=== PATIENT | female | born 1970 | race Caucasian/White ===

== ENCOUNTER → 2019-08-14 14:01 | Outpatient (BNVA) | payer BC, SELFPAY | PROVIDERS: Family Provider Nurse Practitioner; PCP Nurse Practitioner; Referring Provider Physician Assistant Medical; Visit Provider Podiatrist Foot & Ankle Surgery | DX: M79.671 Pain in right foot (principal); M79.672 Pain in left foot | CPT/HCPCS: 73630 ==

== ENCOUNTER 2019-10-28 11:04 | Emergency (ER) | payer BC, SELFPAY ==
[2019-10-28 11:11] VITALS: BMI 35.6
[2019-10-28 11:14] VITALS: BP 137/78; PULSE 68; RESP 18; TEMP 36.7; O2SAT 96
--- NOTE | 2019-10-28 11:35 | USR_ITS ---
PROCEDURE INFORMATION: Exam: US Abdomen, Limited; Right Upper Quadrant Exam date and time: 10/28/2019 12:07 PM Age: 49 years old Clinical indication: Abdominal pain; Epigastric TECHNIQUE: Imaging protocol: US abdomen. Real time ultrasound with image documentation. Limited exam focused on the right upper quadrant. COMPARISON: US gall bladder [id number] 09/22/2018 12:35 PM FINDINGS: Liver: Unremarkable. Gallbladder: No gallstones. No gallbladder wall thickening or pericholecystic fluid. Negative sonographic Shetty's sign, as per the performing broadband installer. Common bile duct: No stones. No ductal dilatation. Pancreas: Unremarkable as visualized. Right kidney: No mass. No definite stones. No hydronephrosis. US/US gall bladder [id number] IMPRESSION: No acute sonographic findings.
[2019-10-28] MEDS: sodium chloride 0.9% 1,000 ML 100 ML IV (11:37)
[2019-10-28] MEDS: morphine 4 mg/mL SDV 1 mL IVP ×2 (11:40→13:00)
[2019-10-28] MEDS: ondansetron 2 mg/ML SDV 2 mL 4 MG IVP (11:40)
[2019-10-28 11:50] LABS: Basophils # 0.1 10^3/uL (0.0-0.1); Basophils % 2.1 %; Eosinophils # 0.1 10^3/uL (0.0-0.8); Eosinophils % 1.9 %; Hematocrit 43.5 % (37.0-47.0); Hemoglobin 13.9 g/dL (11.5-15.3); Lymphocytes # 1.5 10^3/uL (0.8-4.8); Lymphocytes % 30.9 %; Mean Corpuscular Hemoglobin 30.5 pg (28.0-34.0); Mean Corpuscular Volume 95.6 fL (81-99); Mean Platelet Volume 9.5 fL (7.4-10.4); Monocytes # 0.3 10^3/uL (0.2-0.9); Monocytes % 7.1 %; Neutrophils # 2.77 10^3/uL (1.8-7.7); Neutrophils % 57.8 %; Nucleated Red Blood Cells % 0 %; Platelet Count 314 10^3/cmm (130-400); Red Blood Count 4.55 10^6/uL (4.1-5.3); Red Cell Distribution Width 12.6 % (12.1-15.1); White Blood Count 4.8 10^3/uL (4.0-10.0)
--- NOTE | 2019-10-28 11:50 | W.ED.ABDPA2 ---
HPI - Abdominal Pain General: Chief Complaint: Abdominal Pain Stated Complaint: ABD PAIN Time Seen by Provider: 10/28/19 11:20 Source: patient Mode of arrival: ambulatory Limitations: no limitations History of Present Illness: HPI narrative: Aggie is a nice 49-year-old female who comes in complaining of diffuse abdominal pain. She points to the lower quadrants, the epigastric area and also indicates she hurts in her upper quadrants. The pain is constant but has been waxing and waning in severity throughout the day. She is had associated nauseousness and diarrhea but denies any vomiting. She denies any blood in her stools or blood in her vomit. She denies any chest pain, shortness of breath. She states if she does get up quickly she can get lightheaded but this passes quickly. Patient states she has a history of colitis and these symptoms are similar and that is why she came in for evaluation. She denies any blood in her stools or melena. She denies any recent antibiotics. She is unaware of any exacerbating or alleviating factors. She is not been exposed anyone else that sick. Associated Symptoms: Reports diarrhea and nausea; Denies chills, coffee ground emesis, constipation, GI cramping, dysuria, fever(s), heartburn, hematochezia, hematuria, hematemesis, melena, syncope and vomiting Review of Systems Const: Denies: fever(s), chills, body aches, fatigue, malaise or diaphoresis Eyes: Denies: change in vision, blurry vision, blind spots, photophobia, eye discharge or eye redness ENMT: Denies: throat pain, odynophagia, hoarseness, swelling of lips/tongue, oral sores, ear or mastoid pain, ear discharge, change in hearing or nasal discharge Card: Denies: chest pain, palpitations, irregular heart rhythm, edema, lightheadedness, syncope, pre-syncope, dyspnea on exertion or orthopnea Resp: Denies: dyspnea, productive cough, non-productive cough, wheezing, hemoptysis or chest congestion GI: Reports: abdominal pain, nausea and diarrhea; Denies: vomiting, hematemesis, coffee ground emesis, heartburn, constipation, GI cramping, hematochezia or melena : Denies: flank pain, dysuria, urinary frequency, urinary urgency or hematuria Musc: Denies: neck pain, back pain, extremity pain, extremity swelling, joint pain, joint swelling, joint redness, joint warmth or joint stiffness Skin/Breast: Denies: rash, pruritus, erythema, skin tenderness or jaundice Neuro: Denies: headache(s), numbness in extremities, weakness in extremities, sensory changes, lack of coordination, difficulty walking, dizziness, vertigo, confusion, Slurred speech present or seizure-like activity Stevo/Lymph: Denies: easy bruising, easy bleeding, petechiae, purpura or enlarged lymph nodes All/Imm: Denies: urticaria, throat swelling, tongue swelling, facial swelling or acute wheezing PFSH ED PFSH: Medical History Fibromyalgia GERD (gastroesophageal reflux disease) Surgical History History of hysterectomy Social History Smoking and tobacco status: never smoked Alcohol intake: current Alcohol intake frequency: holidays/special occasions only Current occupational status: employed 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 Const: COMMON NORMALS: no acute distress, patient oriented x3, no limitations, healthy appearing and well nourished GENERAL APPEARANCE: cooperative, well kempt and well developed HENMT: COMMON NORMALS: normocephalic, atraumatic, external ears normal, EAC's normal and Normal external nose present HEAD & SCALP: normal to inspection, normocephalic and atraumatic FACE & SINUS: normal facial exam and face symmetric NOSE: Normal external nose present and Normal nares present EXTERNAL EAR: Yes external ears normal EXTERNAL AUDITORY CANAL: EAC's normal MOUTH: Normal oral and palatal mucosa present, lip normal and tongue normal Eye: COMMON NORMALS: Equal, round and reactive pupils present and conjunctivae normal GENERAL EYE: appearance normal, both eyes and all related structures ALIGNMENT: Yes alignment normal PERIORBITAL: periorbital findings normal EYELID: eyelids normal CONJUNCTIVA: Yes conjunctivae normal SCLERA: sclerae normal PUPIL: Yes Equal, round and reactive pupils present Neck/C-Spine: COMMON NORMALS: full ROM, no lymphadenopathy, supple, no meningeal signs and no JVD GENERAL: Yes normal visual inspection and Yes trachea midline Chest: COMMONS NORMALS: normal inspection of the chest and normal palpation of entire chest wall Resp: COMMON NORMALS: normal respiratory effort, No retractions and No use of accessory muscles EFFORT & INSPECTION: Yes able to speak in complete sentences and Yes symmetric chest movement AUSCULTATION: no crackles, no rales, no rhonchi and no wheezes Cardio: COMMON NORMALS: no JVD, regular rate, regular rhythm, S1 normal heart sound present and S2 normal heart sound present RATE: regular rate RHYTHM: regular rhythm HEART SOUNDS: S1 normal heart sound present, S2 normal heart sound present, no click, no gallops, no murmurs, no rubs and abnormal split S2 GI: COMMON NORMALS: Soft to palpation and No hepatosplenomegaly present PALPATION: Yes Soft to palpation, No Tenderness to palpation present (GI), No Guarding due to palpation present (GI), No Rigid due to palpation, Yes No hepatosplenomegaly present, No Hernia present, No Palpable mass present and No Pulsatile mass present : COMMON NORMALS: Yes no CVA tenderness BLADDER/KIDNEY EXAM: Yes no CVA tenderness EXTERNAL FEMALE EXAM: No Hernia present Back/Pelvis: COMMON NORMALS: no CVA tenderness, thoracic and lumbar spine normal to inspection, no thoracic nor lumbar tenderness and thoraco-lumbar ROM normal Extremity: COMMON NORMALS: normal to inspection, full ROM, capillary refill normal, no joint enlargement, no clubbing, cyanosis or edema and no calf tenderness Neuro: COMMON NORMALS: patient oriented x3, CN's II-XII intact bilaterally, moves all extremities, no focal motor deficits and no sensory deficits noted MENINGEAL SIGNS: Yes no meningeal signs SPEECH: speech normal Psych: COMMON NORMALS: mental status grossly normal, Normal thought process present, cooperative, normal affect, speech normal and activity/motor behavior normal APPEARANCE: Yes well kempt SPEECH: Yes normal speech THOUGHT PROCESS: Normal thought process present Skin: COMMON NORMALS: no rashes or lesions noted, turgor normal, no jaundice, no petechiae and no mottling GENERAL SKIN EXAM: no rashes or lesions noted and turgor normal Course Vital Signs: Vital signs: Vital Signs Temperature 98.0 F 10/28/19 11:14 Pulse Rate 64 10/28/19 15:21 Respiratory Rate 18 10/28/19 15:21 Blood Pressure 126/87 10/28/19 15:21 Pulse Oximetry 96 10/28/19 15:21 MDM - Abdominal Pain MDM Narrative: Medical decision making narrative: Pablo is a nice 49-year-old female who comes in complaining of lower abdominal pain and diarrhea. She has had similar symptoms in the past secondary to colitis. Patient states that she has had diarrhea with this. She denies any blood in her stools or black melanotic stools. She denies been on any recent antibiotics. She had a meal denies chest pain or shortness of breath. Ultrasound and CT scan are unremarkable. The patient declines to stay for any cardiac testing as she denies having any symptoms in her chest. The patient agrees to return should her symptoms change or worsen but at this time she is adamant she would like to be discharged. Differential Diagnosis: Differential diagnosis abdominal pain: Likely abdominal pain, calculus of kidney, constipation, diverticulitis, endometriosis, gastroenteritis, pancreatitis and small bowel obstruction Lab Data: Attestation: I reviewed the patient's lab results. Labs: Lab Results 10/28/19 10/28/19 10/28/19 Range/Units 11:35 11:35 11:35 WBC 4.8 (4.0-10.0) 10^3/ uL RBC 4.55 (4.1-5.3) 10^6/u L Hgb 13.9 (11.5-15.3) g/dL Hct 43.5 (37.0-47.0) % MCV 95.6 (81-99) fL MCH 30.5 (28.0-34.0) pg MCHC 32.0 (30.0-36.0) g/dL RDW 12.6 (12.1-15.1) % Plt Count 314 (130-400) 10^3/c mm MPV 9.5 (7.4-10.4) fL Neut % (Auto) 57.8 % Lymph % (Auto) 30.9 % [place] % (Auto) 7.1 % Eos % (Auto) 1.9 % Baso % (Auto) 2.1 % Neut # (Auto) 2.77 (1.8-7.7) 10^3/u L Lymph # (Auto) 1.5 (0.8-4.8) 10^3/u L [place] # (Auto) 0.3 (0.2-0.9) 10^3/u L Eos # (Auto) 0.1 (0.0-0.8) 10^3/u L Baso # (Auto) 0.1 (0.0-0.1) 10^3/u L Nucleated RBC % (a uto) 0 % Nucleated RBCs # 0.0 /100WBC Sodium 135 L (136-145) mmol/L Potassium 4.0 (3.5-5.1) mmol/L Chloride 100 (98-107) mmol/L Carbon Dioxide 25 (22-29) mmol/L Anion Gap 14.0 (5-19) BUN 10 (6-20) mg/dL Creatinine 0.8 (0.5-0.9) mg/dL GFR Calculation 76.9 L (90-130) mL/min Glucose 99 (65-115) mg/dL Calculated Osmolal ity 276 L (285-295) mOsm/k g Calcium 9.7 (8.5-10.5) mg/dL Magnesium 1.9 (1.7-2.3) mg/dL Total Bilirubin 0.4 (0.15-1.2) mg/dL AST 14 (0-32) U/L ALT 13 (0-33) U/L Alkaline Phosphata se 61 (35-105) IU/L Total Protein 7.1 (6.6-8.7) g/dL Albumin 4.5 (3.5-5.2) g/dL Globulin 2.6 (1.3-4.6) g/dL Lipase 17 (13-60) U/L HCG, Qual Negative (Negative) Urine Color (Yellow) Urine Appearance (CLEAR) Urine pH (5-7) Ur Specific Gravit y (1.005-1.030) Urine Protein (Negative) Urine Glucose (UA) (Normal) Urine Ketones (Negative) Urine Blood (Negative) Urine Nitrate (Negative) Urine Bilirubin (NEGATIVE) Urine Urobilinogen (Negative) mg/dL Ur Leukocyte [place]aine ase (Negative) H. pylori IgG Anti body (Negative) 10/28/19 10/28/19 Range/Units 11:35 12:52 WBC (4.0-10.0) 10^3/ uL RBC (4.1-5.3) 10^6/u L Hgb (11.5-15.3) g/dL Hct (37.0-47.0) % MCV (81-99) fL MCH (28.0-34.0) pg MCHC (30.0-36.0) g/dL RDW (12.1-15.1) % Plt Count (130-400) 10^3/c mm MPV (7.4-10.4) fL Neut % (Auto) % Lymph % (Auto) % [place] % (Auto) % Eos % (Auto) % Baso % (Auto) % Neut # (Auto) (1.8-7.7) 10^3/u L Lymph # (Auto) (0.8-4.8) 10^3/u L [place] # (Auto) (0.2-0.9) 10^3/u L Eos # (Auto) (0.0-0.8) 10^3/u L Baso # (Auto) (0.0-0.1) 10^3/u L Nucleated RBC % (a uto) % Nucleated RBCs # /100WBC Sodium (136-145) mmol/L Potassium (3.5-5.1) mmol/L Chloride (98-107) mmol/L Carbon Dioxide (22-29) mmol/L Anion Gap (5-19) BUN (6-20) mg/dL Creatinine (0.5-0.9) mg/dL GFR Calculation (90-130) mL/min Glucose (65-115) mg/dL Calculated Osmolal ity (285-295) mOsm/k g Calcium (8.5-10.5) mg/dL Magnesium (1.7-2.3) mg/dL Total Bilirubin (0.15-1.2) mg/dL AST (0-32) U/L ALT (0-33) U/L Alkaline Phosphata se (35-105) IU/L Total Protein (6.6-8.7) g/dL Albumin (3.5-5.2) g/dL Globulin (1.3-4.6) g/dL Lipase (13-60) U/L HCG, Qual (Negative) Urine Color Colorless (Yellow) Urine Appearance Clear (CLEAR) Urine pH 7 (5-7) Ur Specific Gravit y 1.005 (1.005-1.030) Urine Protein Neg (Negative) Urine Glucose (UA) Norm (Normal) Urine Ketones Negative (Negative) Urine Blood Neg (Negative) Urine Nitrate Negative (Negative) Urine Bilirubin Neg (NEGATIVE) Urine Urobilinogen Norm (Negative) mg/dL Ur Leukocyte [place] ase Negative (Negative) H. pylori IgG Anti body Negative (Negative) Imaging Data ^: US: Radiologist's impression: [place] [address] Ultrasound Report Signed Patient: Aggie Govea Unit #: [id number] : 1970 Age/Sex: 49 / F ADM Date: 10/28/19 Loc: ER Room/Bed: Attending Dr: Ordering Provider/Ordering MD: Katarina Pierre DO Date of Service: 10/28/19 Procedure(s): US gall bladder [id number] Accession Number(s): [id number] Report Number: [id number] PROCEDURE INFORMATION: Exam: US Abdomen, Limited; Right Upper Quadrant Exam date and time: 10/28/2019 12:07 PM Age: 49 years old Clinical indication: Abdominal pain; Epigastric TECHNIQUE: Imaging protocol: US abdomen. Real time ultrasound with image documentation. Limited exam focused on the right upper quadrant. COMPARISON: US gall bladder [id number] 09/22/2018 12:35 PM FINDINGS: Liver: Unremarkable. Gallbladder: No gallstones. No gallbladder wall thickening or pericholecystic fluid. Negative sonographic Shetty's sign, as per the performing thermostat machine tender. Common bile duct: No stones. No ductal dilatation. Pancreas: Unremarkable as visualized. Right kidney: No mass. No definite stones. No hydronephrosis. US/US gall bladder [id number] IMPRESSION: No acute sonographic findings. Dictated By: Valdez Soriano MD Signed By: Valdez Soriano MD Signed Date/Time: 10/28/19 1224 DD/ 1223 CT Abd/Pel: Radiologist's impression: [place] [address] CT Scan Report Signed Patient: Aggie Govea Unit #: [id number] : 1970 Age/Sex: 49 / F ADM Date: 10/28/19 Loc: ER Room/Bed: Attending Dr: Ordering Provider/Ordering MD: Katarina Pierre DO Date of Service: 10/28/19 Procedure(s): CT abdomen pelvis w con* [id number] Accession Number(s): [id number] Report Number: [id number] PROCEDURE INFORMATION: Exam: CT Abdomen And Pelvis With Contrast Exam date and time: 10/28/2019 1:42 PM Age: 49 years old Clinical indication: Abdominal pain; Generalized TECHNIQUE: Imaging protocol: Computed tomography of the abdomen and pelvis with intravenous contrast. Radiation optimization: All CT scans at this facility use at least one of these dose optimization techniques: automated exposure control; mA and/or kV adjustment per patient size (includes targeted exams where dose is matched to clinical indication); or iterative reconstruction. Contrast material: OMNIPAQUE 300; Contrast volume: 95 ml; Contrast route: INTRAVENOUS (IV); COMPARISON: CT abdomen pelvis w con* [id number] 09/22/2018 2:36 PM RADIATION DOSE METRICS: Total DLP (mGy-cm): 1450.59 FINDINGS: Liver: Normal. No mass. Gallbladder and bile ducts: Normal. No calcified stones. No ductal dilation. Pancreas: Normal. No ductal dilation. Spleen: Normal. No splenomegaly. Adrenals: Normal. No mass. Kidneys and ureters: Normal. No hydronephrosis. Stomach and bowel: Unremarkable. No obstruction. No mucosal thickening. Appendix: No evidence of appendicitis. Intraperitoneal space: Unremarkable. No free air. No significant fluid collection. Vasculature: Unremarkable. No abdominal aortic aneurysm. Lymph nodes: Unremarkable. No enlarged lymph nodes. Bladder: Unremarkable as visualized. Reproductive: The uterus is not visualized, consistent with hysterectomy. Bones/joints: Unremarkable. No acute fracture. Soft tissues: Tiny fat containing umbilical hernia. CT/CT abdomen pelvis w con* [id number] IMPRESSION: No acute findings.Non acute findings as described above. Radiation Dose CTDIVOL = (mGy): DLP = 1450.59 (mGy-cm) Dictated By: Hermelinda Glover MD Signed By: Hermelinda Glover MD Signed Date/Time: 10/28/191417 DD/ 141 EKG Data ^: EKG 1: Attestation: I personally reviewed and interpreted this EKG as follows: EKG interpretation date: 10/28/19 EKG interpretation time: 15:04 Interpretation: Normal sinus rhythm at 64 beats a minute, no acute ST-T wave changes. Discharge Plan Discharge Patient Disposition: Home Clinical Impression: Abdominal pain Qualifiers: Abdominal location: generalized Qualified Code(s): R10.84 - Generalized abdominal pain Condition: Stable Prescriptions: New Zofran 4 mg tablet 4 mg PO Q6H PRN (Reason: nausea and vomiting) Qty: 20 RF: 0 dicyclomine 20 mg tablet 20 mg PO QID Qty: 10 RF: 0 No Action omeprazole 40 mg capsule,delayed release(DR/EC) 40 mg PO DAILY RF: 0 montelukast [Singulair] 10 mg tablet 10 mg PO DAILY RF: 0 estradiol 2 mg tablet 2 mg PO DAILY RF: 0 alprazolam [Xanax] 1 mg tablet 1 mg PO BEDTIME RF: 0 ondansetron 4 mg tablet,disintegrating 4 mg PO Q6H PRN (Reason: Nausea) RF: 0 Lyrica 75 mg Capsule 75 mg PO DAILY RF: 0 Discharge Orders: Discharge Order (Routine); Ordered 10/28/19 Ordered By: Katarina Pierre Referrals: Anish Marte MD [Physician] - 1-3 days Shellie Dumont FNP [Primary Care Provider] - 1-3 days Discharge Diet: Advance as tolerated and Clear Liquid Discharge Activity: Increase activity as tolerated Patient Instructions: Abdominal Pain (ED) Activity Restrictions/Additional Instructions: Please return to the ER immediately for any of the signs or symptoms listed on your discharge instruction sheets, worsening/changing of your symptoms, you are not getting better as quickly as expected, or for ANY other cause or concerns. You have declined further evaluation care of your heart including laboratory work-up. If develop chest pain or shortness of breath please return to the ER immediately for recheck. Otherwise follow-up with your doctor as soon as possible as well as with Dr. Marte for further evaluation and care. Discharge Date/Time: 10/28/19 15:23 Coding Level of Care Code ED Professor Of Nursing for Chg Fwd Exam Comprehensive
[2019-10-28 12:04] VITALS: BP 113/75; PULSE 67; RESP 18; O2SAT 95
[2019-10-28 12:14] LABS: Alanine Aminotransferase 13 U/L (0-33); Albumin Level 4.5 g/dL (3.5-5.2); Alkaline Phosphatase 61 IU/L (35-105); Aspartate Amino Transferase 14 U/L (0-32); Blood Urea Nitrogen 10 mg/dL (6-20); Calcium 9.7 mg/dL (8.5-10.5); Carbon Dioxide 25 mmol/L (22-29); Chloride 100 mmol/L (98-107); Globulin 2.6 g/dL (1.3-4.6); Glomerular Filtration Rate 76.9 mL/min (90-130); Glucose 99 mg/dL (65-115); Lipase 17 U/L (13-60); Magnesium 1.9 mg/dL (1.7-2.3); Osmolality Calculated 276 mOsm/kg (285-295); Sodium 135 mmol/L (136-145); Total Bilirubin 0.4 mg/dL (0.15-1.2); Total Protein 7.1 g/dL (6.6-8.7)
[2019-10-28 12:25] LABS: HCG, Serum Qual Negative (Negative)
[2019-10-28 12:35] LABS: H. Pylori IgG Antibody Negative (Negative)
[2019-10-28 12:42] VITALS: BP 147/91; PULSE 67; RESP 14; O2SAT 93
--- NOTE | 2019-10-28 12:54 | CTR_ITS ---
PROCEDURE INFORMATION: Exam: CT Abdomen And Pelvis With Contrast Exam date and time: 10/28/2019 1:42 PM Age: 49 years old Clinical indication: Abdominal pain; Generalized TECHNIQUE: Imaging protocol: Computed tomography of the abdomen and pelvis with intravenous contrast. Radiation optimization: All CT scans at this facility use at least one of these dose optimization techniques: automated exposure control; mA and/or kV adjustment per patient size (includes targeted exams where dose is matched to clinical indication); or iterative reconstruction. Contrast material: OMNIPAQUE 300; Contrast volume: 95 ml; Contrast route: INTRAVENOUS (IV); COMPARISON: CT abdomen pelvis w con* [id number] 09/22/2018 2:36 PM RADIATION DOSE METRICS: Total DLP (mGy-cm): 1450.59 FINDINGS: Liver: Normal. No mass. Gallbladder and bile ducts: Normal. No calcified stones. No ductal dilation. Pancreas: Normal. No ductal dilation. Spleen: Normal. No splenomegaly. Adrenals: Normal. No mass. Kidneys and ureters: Normal. No hydronephrosis. Stomach and bowel: Unremarkable. No obstruction. No mucosal thickening. Appendix: No evidence of appendicitis. Intraperitoneal space: Unremarkable. No free air. No significant fluid collection. Vasculature: Unremarkable. No abdominal aortic aneurysm. Lymph nodes: Unremarkable. No enlarged lymph nodes. Bladder: Unremarkable as visualized. Reproductive: The uterus is not visualized, consistent with hysterectomy. Bones/joints: Unremarkable. No acute fracture. Soft tissues: Tiny fat containing umbilical hernia. CT/CT abdomen pelvis w con* [id number] IMPRESSION: No acute findings.Non acute findings as described above. Radiation Dose CTDIVOL = (mGy): DLP = 1450.59 (mGy-cm)
[2019-10-28 13:00] VITALS: RESP 17; O2SAT 97
[2019-10-28 13:05] VITALS: BP 147/91; PULSE 66; RESP 18; O2SAT 94
[2019-10-28 13:18] LABS: Add Urine Microscopic? NO
[2019-10-28 13:24] LABS: Bilirubin Urine Neg (NEGATIVE); Blood Urine Neg (Negative); Glucose Urine UA Norm (Normal); Ketones Urine Negative (Negative); Leukocyte Esterase Urine Negative (Negative); Nitrate Urine Negative (Negative); Protein Urine Neg (Negative); Specific Gravity, Urine 1.005 (1.005-1.030); Urine Appearance Clear (CLEAR); Urine Color Colorless (Yellow); Urobilinogen Urine Norm (Negative); pH Urine 7 (5-7)
[2019-10-28] MEDS: iohexol 300 mg/mL 100 mL Btl IV (13:59)
--- NOTE | 2019-10-28 14:50 | ECG_ITS ---
[facility] Test Date: 2019-10-28 Pat Name: Aggie Govea Department: Room: Gender: Female Relay Adjuster: : 1970 Requested By: Katarina Solorzano Order Number: [id number] Chavarria MD: Jacinda Nixon M.D. Measurements Intervals [place] Rate: 64 P: 51 AK: 190 QRS: 48 QRSD: 84 T: 44 QT: 399 QTc: 413 Interpretive Statements SINUS RHYTHM Compared to ECG 09/22/2018 15:17:02 No significant changes Electronically Signed On 10-29-2019 21:31:06 CDT by Jacinda Nixon M.D. [email or web address]
[2019-10-28 15:21] VITALS: BP 126/87; PULSE 64; RESP 18; O2SAT 96
== END 2019-10-28 15:23 | disposition home or self-care (01) ==
PROVIDERS: Emergency Provider Emergency Medicine; PCP Nurse Practitioner
DX: R10.84 Generalized abdominal pain (principal)
CPT/HCPCS: 12345; 36415; 74177; 76705; 80053; 81003; 83690; 83735; 84703; 85025; 86677; 93005; 96361; 96374; 96375; 96376; 99282; 99284; J2270; J2405; J7030; Q9967

== ENCOUNTER → 2019-12-21 08:10 | Outpatient (BNVA) | payer BC, SELFPAY | PROVIDERS: PCP Nurse Practitioner; Visit Provider Surgery | DX: R10.84 Generalized abdominal pain (principal); K21.9 Gastro-esophageal reflux disease without esophagitis | CPT/HCPCS: 87635 ==

== ENCOUNTER 2019-12-26 07:08 | Day surgery (SDC) | payer BC, SELFPAY ==
[2019-12-24 13:13] VITALS: BMI 35.7
[2019-12-25 08:13] VITALS: BMI 35.7
[2019-12-26 07:27] VITALS: BP 112/76; PULSE 69; RESP 18; TEMP 36.2; O2SAT 97
[2019-12-26] MEDS: sodium chloride 0.9% 1,000 ML 30 ML IV (07:38)
--- NOTE | 2019-12-26 07:43 | ANES.PREANE2 ---
Pre-Anesthetic Assessment Pre-Anesthetic Assessment: Height/Weight: Height 1.65 m Weight 97.522 kg Temp Pulse Resp BP Pulse Ox 97.1 F L 69 18 112/76 97 12/26/19 07:27 12/26/19 07:27 12/26/19 07:27 12/26/19 07:27 12/26/19 07:27 Preop Diagnosis: Bloating and diarrhea Proposed Procedure: Operation Date: 12/26/19 08:00 Proposed Procedures p EGD 51591 K21.9(Not Applicable) - Lucio Segal MD s Colonoscopy 24416 Z12.11(Not Applicable) - Lucio Segal MD Familial anesthetic complications: None Last intake: Intake Last Liquid Date 12/25/19 Last Liquid Time 21:00 Last Solid Date 12/24/19 Last Solid Time 00:00 Social: Social History: No alcohol and No tobacco Exam: Pre-Anes Outpt Exam: alert, oriented x 3, clear to auscultation bilaterally and regular rate & rhythm Airway: Cervical ROM: WNL MP: 3 Dentition: Other (missing tooth) Anesthetic Plan: ASA status: 1 Anesthesia: MAC Risk of > 500 ml blood loss (7ml/kg in children): No Meds/Allergies Current Medications: Current Medications Generic Name Dose Route Start Last Admin Trade Name Freq PRN Reason Stop Dose Admin Sodium Chloride 1,000 mls @ 30 ml s/hr 12/26/19 07:30 12/26/19 07:38 Sodium Chloride 0.9% IV 12/27/19 07:29 30 mls/hr .Q24H BRIDGET Administration PFSH Anesthesia PFSH: Medical History (Updated 11/05/19 @ 00:00 by ) Fibromyalgia GERD (gastroesophageal reflux disease) Surgical History History of hysterectomy Family History Denies family history of Anesthesia complication Bleeding disorder Social History Smoking and tobacco status: never smoked Alcohol intake: current Alcohol intake frequency: holidays/special occasions only Current occupational 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
--- NOTE | 2019-12-26 08:27 | W.PM.OPSFHP ---
Same Day Surgery H&P Indication for Procedure/HPI DATE OF PROCEDURE: December 26, 2019 CHIEF COMPLAINT/INDICATIONFOR SURGICAL PROCEDURE: Bloating and diarrhea PREOP DIAGNOSIS: Bloating and diarrhea PLANNED PROCEDRUE: Operation Date: 12/26/19 08:00 Proposed Procedures p EGD 88432 K21.9(Not Applicable) - Lucio Segal MD s Colonoscopy 88715 Z12.11(Not Applicable) - Lucio Segal MD This is a pleasant 49 years old female patient presents with history of bloating and abdominal pain, dull aching not related to food not being referred nothing seems to make it better or worse. Patient overall feels better now she does report history of nausea and diarrhea. Undergone a CT scan of the abdomen and pelvis when she was in the ER that showed; FINDINGS: Liver: Normal. No mass. Gallbladder and bile ducts: Normal. No calcified stones. No ductal dilation. Pancreas: Normal. No ductal dilation. Spleen: Normal. No splenomegaly. Adrenals: Normal. No mass. Kidneys and ureters: Normal. No hydronephrosis. Stomach and bowel: Unremarkable. No obstruction. No mucosal thickening. Appendix: No evidence of appendicitis. Intraperitoneal space: Unremarkable. No free air. No significant fluid collection. Vasculature: Unremarkable. No abdominal aortic aneurysm. Lymph nodes: Unremarkable. No enlarged lymph nodes. Bladder: Unremarkable as visualized. Reproductive: The uterus is not visualized, consistent with hysterectomy. Bones/joints: Unremarkable. No acute fracture. Soft tissues: Tiny fat containing umbilical hernia. CT/CT abdomen pelvis w con* [id number] IMPRESSION: No acute findings.Non acute findings as described above. Patient reports to me that her appendix was removed before years ago Ultrasound of the liver and gallbladder was done and showed; Liver: Unremarkable. Gallbladder: No gallstones. No gallbladder wall thickening or pericholecystic fluid. Negative sonographic Shetty's sign, as per the performing director of managed services. Common bile duct: No stones. No ductal dilatation. Pancreas: Unremarkable as visualized. Right kidney: No mass. No definite stones. No hydronephrosis. US/US gall bladder [id number] IMPRESSION: No acute sonographic findings. Patient reports that she has been bloated and she does not know exactly what is causing that but she reports history of fibromyalgia Interim history 12/26/2019 Patient comes today for diagnostic EGD and colonoscopy and she continues to have bloating and loose stools, will plan to EGD and colonoscopy in addition to stool studies. ROS All systems have been reviewed negative except for the above or per problem list Medications/Allergies* Home Medications Medication Instructions Recorded Confirmed Type alprazolam 1 mg tablet 1 mg PO BEDTIME tab 08/14/19 12/26/19 History estradiol 2 mg tablet 2 mg PO DAILY 08/14/19 12/26/19 History montelukast 10 mg tablet 10 mg PO DAILY 08/14/19 12/26/19 History omeprazole 40 mg capsule,delayed 40 mg PO DAILY 08/14/19 12/26/19 History release ondansetron 4 mg PO Q6H PRN 10/28/19 12/26/19 History pregabalin [Lyrica] 75 mg PO DAILY 10/28/19 12/26/19 History Allergies/Adverse Reactions Allergy/AdvReac Type Severity Reaction Status Date / Time ciprofloxacin [From Cipro] Allergy itching Verified 12/26/19 08:28 topiramate [From Topamax] Allergy Jittery Verified 12/26/19 08:28 Current Medications: Generic Name Dose Route Start Last Admin Trade Name Freq PRN Reason Stop Dose Admin Sodium Chloride 1,000 mls @ 30 mls/hr 12/26/19 07:30 12/26/19 07:38 Sodium Chloride 0.9% IV 12/27/19 07:29 30 mls/hr .Q24H BRIDGET Administration Pertinent History/Comorbid Conditions* Medical History (Updated 11/05/19 @ 00:00 by ) Fibromyalgia GERD (gastroesophageal reflux disease) Surgical History (Updated 08/18/19 @ 22:26 by Jose Angel Owens DPM) History of hysterectomy Family History (Updated 11/01/19 @ 15:32 by Danica Toledo, JOE) Denies family history of Anesthesia complication Bleeding disorder Social History Smoking and tobacco status: never smoked Alcohol intake: current Alcohol intake frequency: holidays/special occasions only Current occupational status: employed 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
[2019-12-26 09:03] VITALS: BP 108/56; PULSE 82; RESP 18; TEMP 36.3; O2SAT 98
--- NOTE | 2019-12-26 09:04 | ANE.PACU2 ---
Inpatient post-anesthesia follow up: Airway intact: Yes Vital signs: Temperature 97.1 F Pulse Rate 69 Respiratory Rate 18 Blood Pressure 112/76 Pulse Oximetry 97 Oxygen Delivery Me thod Room Air Oxygen Flow Rate Fraction of Inspir ed Oxygen Hydration adequate: Yes Nausea and vomiting: No Pain level: 1 Mental status: Baseline
== END 2019-12-26 09:39 | disposition home or self-care (01) ==
PROVIDERS: PCP Physician Assistant Medical; Visit Provider Surgery
PROC: 0DJ08ZZ Inspection of Upper Intestinal Tract, Via Natural or Artificial Opening Endoscopic (ICD-10-PCS; CPT 43235; principal; 2019-12-26 08:00)
PROC: 0DJD8ZZ Inspection of Lower Intestinal Tract, Via Natural or Artificial Opening Endoscopic (ICD-10-PCS; CPT 45378; 2019-12-26 08:00)
DX: R14.0 Abdominal distension (gaseous) (principal); K52.9 Noninfective gastroenteritis and colitis, unspecified; M79.7 Fibromyalgia; K21.9 Gastro-esophageal reflux disease without esophagitis; K31.7 Polyp of stomach and duodenum
CPT/HCPCS: 12345; 43251; 45378; 82274; 83630; 87493; 87506; 88305; J2704; J7030

== ENCOUNTER 2020-01-27 09:49 | Emergency (ER) | payer BC, SELFPAY ==
[2020-01-27 09:53] VITALS: BP 128/83; PULSE 100; RESP 18; TEMP 36.5; O2SAT 94; BMI 35.7
--- NOTE | 2020-01-27 09:59 | CTR_ITS ---
PROCEDURE INFORMATION: Exam: CT Abdomen And Pelvis With Contrast Exam date and time: 01/27/2020 10:14 AM Age: 49 years old Clinical indication: Abdominal pain; Epigastric; Prior surgery; Surgery type: Hysto, appy; Additional info: Abd pain TECHNIQUE: Imaging protocol: Computed tomography of the abdomen and pelvis with intravenous contrast. Radiation optimization: All CT scans at this facility use at least one of these dose optimization techniques: automated exposure control; mA and/or kV adjustment per patient size (includes targeted exams where dose is matched to clinical indication); or iterative reconstruction. Contrast material: OMNI 300; Contrast volume: 95 ml; Contrast route: INTRAVENOUS (IV); COMPARISON: CT abdomen pelvis w con* [id number] 10/28/2019 1:43 PM RADIATION DOSE METRICS: Total DLP (mGy-cm): 1298.64 FINDINGS: Lungs: There is a small benign calcified granuloma in the right middle lobe. Liver: Normal. No mass. Gallbladder and bile ducts: Normal. No calcified stones. No ductal dilation. Pancreas: Normal. No ductal dilation. Spleen: Small benign calcified granulomas are present in the spleen. Adrenals: Normal. No mass. Kidneys and ureters: Normal. No hydronephrosis. Stomach and bowel: There is mild mural thickening of the ascending colon with mild haziness of the margins. There is fluid in the right-sided colon. This could indicate a colitis possibly infectious in nature. Otherwise the bowel is unremarkable with no obstruction or dilatation. Appendix: No evidence of appendicitis. Intraperitoneal space: Unremarkable. No free air. No significant fluid collection. Vasculature: Unremarkable. No abdominal aortic aneurysm. Lymph nodes: Unremarkable. No enlarged lymph nodes. Urinary bladder: Unremarkable as visualized. Reproductive: The patient has undergone hysterectomy. No adnexal masses are seen. Bones/joints: Unremarkable. No acute fracture. Soft tissues: Unremarkable. CT/CT abdomen pelvis w con* [id number] IMPRESSION: There is mild mural thickening of the ascending colon suggesting a colitis possibly infectious in nature. Radiation Dose CTDIVOL = (mGy): DLP = 1298.64 (mGy-cm)
--- NOTE | 2020-01-27 09:59 | XRR_ITS ---
PROCEDURE INFORMATION: Exam: XR Chest, 1 View Exam date and time: 01/27/2020 10:14 AM Age: 49 years old Clinical indication: Pain; Other: Epigastric; Additional info: Fever TECHNIQUE: Imaging protocol: XR of the chest Views: 1 view. COMPARISON: No relevant prior studies available. FINDINGS: Lungs: Unremarkable. No consolidation. Pleural space: Unremarkable. No pleural effusion. No pneumothorax. Heart/Mediastinum: Unremarkable. No cardiomegaly. Bones/joints: Unremarkable. XR/XR chest 1V portable [id number] IMPRESSION: No acute findings.
[2020-01-27 10:00] VITALS: BP 108/81; PULSE 83; RESP 18; O2SAT 93
[2020-01-27 10:01] VITALS: O2SAT 93
--- NOTE | 2020-01-27 10:08 | ED_ITS ---
HPI - COVID General: Chief Complaint: COVID symptoms Stated Complaint: Fever 01/25 ,body aches, lower abdominal pain Time Seen by Provider: 01/27/20 09:51 Source: patient Mode of arrival: ambulatory Limitations: no limitations Triage information: Has fever, cough or shortness of breath . No known COVID + exposure last 14 days History of Present Illness: HPI Narrative: 49-year-old female states she has been having abdominal pain for months but now is having cough and fever. Patient states that she is having worsening pain now in her epigastric region and right upper quadrant. She denies any worsening or improving factors. She had a temp of 101. Patient states she also has had possible Covid exposure. COVID 19 common symptoms: positive fever(s), non-productive cough and nausea; negative headache(s) or throat pain COVID 19 other sytmptoms: negative chest pain COVID Results: SARS-CoV-2 RNA (RT-PCR) Pending 01/27/20 10:12 01/27/20 Nasal/Oral Coronavirus 2019 PCR Negative 12/21/19 08:10 12/21/19 Review of Systems Const: Reports: fever(s) Eyes: Denies: blurry vision or eye discomfort ENMT: Denies: throat pain or dental pain Card: Denies: chest pain Resp: Reports: non-productive cough GI: Reports: abdominal pain and nausea : Denies: dysuria Musc: Denies: neck pain or back pain Skin/Breast: Denies: rash Neuro: Denies: headache(s) Psych: Denies: depression Stevo/Lymph: Denies: easy bruising All/Imm: Denies: urticaria PFSH ED PFSH: Medical History Fibromyalgia GERD (gastroesophageal reflux disease) Surgical History History of hysterectomy Family History Denies family history of Anesthesia complication Bleeding disorder Social History Smoking and tobacco status: never smoked Alcohol intake: current Alcohol intake frequency: holidays/special occasions only Current occupational status: employed 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 Const: COMMON NORMALS: no acute distress, patient oriented x3 and healthy appearing HENMT: COMMON NORMALS: normocephalic and atraumatic HEAD & SCALP: normocephalic and atraumatic Eye: COMMON NORMALS: Equal, round and reactive pupils present and EOMs intact bilaterally PUPIL: Yes Equal, round and reactive pupils present Neck/C-Spine: COMMON NORMALS: full ROM and supple Chest: COMMONS NORMALS: normal inspection of the chest and normal palpation of entire chest wall Resp: COMMON NORMALS: normal respiratory effort, No retractions, No use of accessory muscles and clear to auscultation bilaterally AUSCULTATION: clear to auscultation bilaterally Cardio: COMMON NORMALS: regular rate, regular rhythm and No murmurs present (Cardio) RATE: regular rate RHYTHM: regular rhythm GI: COMMON NORMALS: Normal to inspection, nondistended, normoactive bowel sounds present, Soft to palpation, non-tender and no masses PALPATION: Yes Soft to palpation Extremity: COMMON NORMALS: normal to inspection and full ROM Neuro: COMMON NORMALS: patient oriented x3, moves all extremities and no focal motor deficits Psych: COMMON NORMALS: mental status grossly normal, Normal thought process present and cooperative THOUGHT PROCESS: Normal thought process present Skin: COMMON NORMALS: no rashes or lesions noted and no wounds GENERAL SKIN EXAM: no rashes or lesions noted Course Vital Signs: Vital signs: Vital Signs Temperature 97.7 F 01/27/20 09:53 Pulse Rate 89 01/27/20 10:36 Respiratory Rate 18 01/27/20 10:36 Blood Pressure 125/70 01/27/20 10:36 Pulse Oximetry 96 01/27/20 10:36 MDM - COVID MDM Narrative Medical decision making narrative: Patient presents here with abdominal pain and was found to have a colitis. Other labs are normal. Patient's was swabbed for Covid. We will start her on Augmentin along with pain medicine. She is to follow-up with PCP and return if worsening. Lab Data Result diagrams: 01/27/20 10:12 01/27/20 10:57 Labs: Lab Results 01/27/20 01/27/20 01/27/20 Range/Units 10:12 10:12 10:22 WBC 9.7 (4.0-10.0) 10^3/uL RBC 4.79 (4.1-5.3) 10^6/uL Hgb 14.4 (11.5-15.3) g/dL Hct 43.8 (37.0-47.0) % MCV 91.4 (81-99) fL MCH 30.1 (28.0-34.0) pg MCHC 32.9 (30.0-36.0) g/dL RDW 12.1 (12.1-15.1) % Plt Count 276 (130-400) 10^3/cmm MPV 10.1 (7.4-10.4) fL Neut % (Auto) 75.5 % Lymph % (Auto) 12.0 % [place] % (Auto) 11.5 % Eos % (Auto) 0.2 % Baso % (Auto) 0.6 % Neut # (Auto) 7.30 (1.8-7.7) 10^3/uL Lymph # (Auto) 1.2 (0.8-4.8) 10^3/uL [place] # (Auto) 1.1 H (0.2-0.9) 10^3/uL Eos # (Auto) 0.0 (0.0-0.8) 10^3/uL Baso # (Auto) 0.1 (0.0-0.1) 10^3/uL Nucleated RBC % (auto) 0 % Nucleated RBCs # 0.0 /100WBC Sodium Cancelled Potassium Cancelled Chloride Cancelled Carbon Dioxide Cancelled Anion Gap Cancelled BUN Cancelled Creatinine Cancelled GFR Calculation Cancelled Glucose Cancelled Calculated Osmolality Cancelled Calcium Cancelled Total Bilirubin Cancelled AST Cancelled ALT Cancelled Alkaline Phosphatase Cancelled C-Reactive Protein Cancelled Total Protein Cancelled Albumin Cancelled Globulin Cancelled Urine Color Yellow (Yellow) Urine Appearance Clear (CLEAR) Urine pH 5 (5-7) Ur Specific [place] 1.020 (1.005-1.030) Urine Protein Neg (Negative) Urine Glucose (UA) Norm (Normal) Urine Ketones 1+ H (Negative) Urine Blood 3+ H (Negative) Urine Nitrate Negative (Negative) Urine Bilirubin 1+ H (Negative) Urine Urobilinogen Norm (Negative) mg/dL Ur Leukocyte Esterase Negative (Negative) Urine RBC 5-10 H (0-2) /hpf Urine WBC 5-10 H (0-5) /hpf Ur Squamous Epith Cells 15-25 H (0-5) /hpf Amorphous Sediment Not Reportable Urine Bacteria 2+ H (NONE) /hpf Urine Mucus 2+ /hpf Urine Yeast 1+ H /hpf 01/27/20 Range/Units 10:57 WBC (4.0-10.0) 10^3/uL RBC (4.1-5.3) 10^6/uL Hgb (11.5-15.3) g/dL Hct (37.0-47.0) % MCV (81-99) fL MCH (28.0-34.0) pg MCHC (30.0-36.0) g/dL RDW (12.1-15.1) % Plt Count (130-400) 10^3/cmm MPV (7.4-10.4) fL Neut % (Auto) % Lymph % (Auto) % Latimer % (Auto) % Eos % (Auto) % Baso % (Auto) % Neut # (Auto) (1.8-7.7) 10^3/uL Lymph # (Auto) (0.8-4.8) 10^3/uL [place] # (Auto) (0.2-0.9) 10^3/uL Eos # (Auto) (0.0-0.8) 10^3/uL Baso # (Auto) (0.0-0.1) 10^3/uL Nucleated RBC % (auto) % Nucleated RBCs # /100WBC Sodium 133 L Potassium 3.6 Chloride 98 Carbon Dioxide 24 Anion Gap 14.6 BUN 10 Creatinine 0.7 GFR Calculation 89.7 L Glucose 112 Calculated Osmolality 276 L Calcium 8.6 Total Bilirubin 0.2 AST 14 ALT 8 Alkaline Phosphatase 69 C-Reactive Protein 159.1 H Total Protein 6.5 L Albumin 3.8 Globulin 2.7 Urine Color (Yellow) Urine Appearance (CLEAR) Urine pH (5-7) Ur Specific [place] (1.005-1.030) Urine Protein (Negative) Urine Glucose (UA) (Normal) Urine Ketones (Negative) Urine Blood (Negative) Urine Nitrate (Negative) Urine Bilirubin (Negative) Urine Urobilinogen (Negative) mg/dL Ur Leukocyte Esterase (Negative) Urine RBC (0-2) /hpf Urine WBC (0-5) /hpf Ur Squamous Epith Cells (0-5) /hpf Amorphous Sediment Urine Bacteria (NONE) /hpf Urine Mucus /hpf Urine Yeast /hpf COVID Results: SARS-CoV-2 RNA (RT-PCR) Pending 01/27/20 10:12 01/27/20 Nasal/Oral Coronavirus 2019 PCR Negative 12/21/19 08:10 12/21/19 Imaging Data CXR: Radiologist's impression: [place] [address] XRay Report Signed Patient: Aggie Govea Unit #: [id number] : 1970 Age/Sex: 49 / F ADM Date: 01/27/20 Loc: ER Room/Bed: Attending Dr: Ordering Provider/Ordering MD: Antonietta Vargas MD Date of Service: 01/27/20 Procedure(s): XR chest 1V portable [id number] Accession Number(s): [id number] Report Number: [id number] PROCEDURE INFORMATION: Exam: XR Chest, 1 View Exam date and time: 01/27/2020 10:14 AM Age: 49 years old Clinical indication: Pain; Other: Epigastric; Additional info: Fever TECHNIQUE: Imaging protocol: XR of the chest Views: 1 view. COMPARISON: No relevant prior studies available. FINDINGS: Lungs: Unremarkable. No consolidation. Pleural space: Unremarkable. No pleural effusion. No pneumothorax. Heart/Mediastinum: Unremarkable. No cardiomegaly. Bones/joints: Unremarkable. XR/XR chest 1V portable [id number] IMPRESSION: No acute findings. CT Abd/Pel: Radiologist's impression: [place] [address] CT Scan Report Signed Patient: Aggie Govea Unit #: [id number] : 1970 Age/Sex: 49 / F ADM Date: 01/27/20 Loc: ER Room/Bed: Attending Dr: Ordering Provider/Ordering MD: Antonietta Vargas MD Date of Service: 01/27/20 Procedure(s): CT abdomen pelvis w con* [id number] Accession Number(s): [id number] Report Number: [id number] PROCEDURE INFORMATION: Exam: CT Abdomen And Pelvis With Contrast Exam date and time: 01/27/2020 10:14 AM Age: 49 years old Clinical indication: Abdominal pain; Epigastric; Prior surgery; Surgery type: Hysto, appy; Additional info: Abd pain TECHNIQUE: Imaging protocol: Computed tomography of the abdomen and pelvis with intravenous contrast. Radiation optimization: All CT scans at this facility use at least one of these dose optimization techniques: automated exposure control; mA and/or kV adjustment per patient size (includes targeted exams where dose is matched to clinical indication); or iterative reconstruction. Contrast material: OMNI 300; Contrast volume: 95 ml; Contrast route: INTRAVENOUS (IV); COMPARISON: CT abdomen pelvis w con* [id number] 10/28/2019 1:43 PM RADIATION DOSE METRICS: Total DLP (mGy-cm): 1298.64 FINDINGS: Lungs: There is a small benign calcified granuloma in the right middle lobe. Liver: Normal. No mass. Gallbladder and bile ducts: Normal. No calcified stones. No ductal dilation. Pancreas: Normal. No ductal dilation. Spleen: Small benign calcified granulomas are present in the spleen. Adrenals: Normal. No mass. Kidneys and ureters: Normal. No hydronephrosis. Stomach and bowel: There is mild mural thickening of the ascending colon with mild haziness of the margins. There is fluid in the right-sided colon. This could indicate a colitis possibly infectious in nature. Otherwise the bowel is unremarkable with no obstruction or dilatation. Appendix: No evidence of appendicitis. Intraperitoneal space: Unremarkable. No free air. No significant fluid collection. Vasculature: Unremarkable. No abdominal aortic aneurysm. Lymph nodes: Unremarkable. No enlarged lymph nodes. Urinary bladder: Unremarkable as visualized. Reproductive: The patient has undergone hysterectomy. No adnexal masses are seen. Bones/joints: Unremarkable. No acute fracture. Soft tissues: Unremarkable. CT/CT abdomen pelvis w con* [id number] IMPRESSION: There is mild mural thickening of the ascending colon suggesting a colitis possibly infectious in nature. Discharge Plan Discharge Patient Disposition: Home Clinical Impression: Colitis Condition: Stable Prescriptions: [place] 5-325 mg tablet 1 tab PO Q6H PRN (Reason: pain) Qty: 14 RF: 0 ondansetron 4 mg tablet,disintegrating 4 mg PO Q6H PRN (Reason: nausea and vomiting) Qty: 14 RF: 0 Augmentin 875-125 mg tablet 1 tab PO BID Qty: 14 RF: 0 No Action omeprazole 40 mg capsule,delayed release(DR/EC) 40 mg PO DAILY RF: 0 montelukast [Singulair] 10 mg tablet 10 mg PO DAILY RF: 0 estradiol 2 mg tablet 2 mg PO DAILY RF: 0 alprazolam [Xanax] 1 mg tablet 0.5 mg PO BID PRN (Reason: Anxiety) RF: 0 pregabalin [Lyrica] 75 mg Capsule 75 mg PO DAILY RF: 0 Mobic 15 mg Tablet 15 mg PO DAILY RF: 0 Tylenol Extra Strength 500 mg Tablet 1,000 mg PO PRN RF: 0 Flonase Allergy Relief 50 mcg/actuation [place],Suspension 2 spray INTRANASAL DAILY RF: 0 Discharge Orders: Discharge Order (Routine); Ordered 01/27/20 Ordered By: Antonietta Vargas Referrals: Valdez Fermin [Primary Care Provider] - 1-3 days Discharge Diet: Advance as tolerated Discharge Activity: Resume usual activity Patient Instructions: Infectious Colitis (ED) Coding Level of Care Code ED Truck Trailer Final Inspector for Chg Fwd Exam Comprehensive
[2020-01-27] MEDS: acetaminophen 325 mg Tablet 650 MG PO (10:26)
[2020-01-27] MEDS: ketorolac 30 mg/mL INJ 15 MG IVP (10:26)
[2020-01-27] MEDS: ondansetron 2 mg/ML SDV 2 mL 4 MG IVP (10:26)
--- NOTE | 2020-01-27 10:35 | PC.NURSE ---
Read and agree with assessment.
[2020-01-27 10:36] VITALS: BP 125/70; PULSE 89; RESP 18; O2SAT 96
[2020-01-27] MEDS: iohexol 300 mg/mL 100 mL Btl IV (10:39)
[2020-01-27 10:48] LABS: Basophils # 0.1 10^3/uL (0.0-0.1); Basophils % 0.6 %; Eosinophils % 0.2 %; Hematocrit 43.8 % (37.0-47.0); Hemoglobin 14.4 g/dL (11.5-15.3); Lymphocytes # 1.2 10^3/uL (0.8-4.8); Mean Corpuscular HGB Conc 32.9 g/dL (30.0-36.0); Mean Corpuscular Hemoglobin 30.1 pg (28.0-34.0); Mean Corpuscular Volume 91.4 fL (81-99); Mean Platelet Volume 10.1 fL (7.4-10.4); Monocytes # 1.1 10^3/uL (0.2-0.9); Monocytes % 11.5 %; Neutrophils % 75.5 %; Nucleated Red Blood Cells % 0 %; Platelet Count 276 10^3/cmm (130-400); Red Blood Count 4.79 10^6/uL (4.1-5.3); Red Cell Distribution Width 12.1 % (12.1-15.1); White Blood Count 9.7 10^3/uL (4.0-10.0)
[2020-01-27 11:18] LABS: Add Urine Microscopic? YES; Bilirubin Urine 1+ (Negative); Blood Urine 3+ (Negative); Glucose Urine UA Norm (Normal); Ketones Urine 1+ (Negative); Leukocyte Esterase Urine Negative (Negative); Nitrate Urine Negative (Negative); Protein Urine Neg (Negative); Urine Appearance Clear (CLEAR); Urine Color Yellow (Yellow); Urobilinogen Urine Norm (Negative); pH Urine 5 (5-7)
[2020-01-27 11:19] LABS: Add Urine Culture? No; Bacteria Urine 2+ /hpf; Mucus Urine 2+ /hpf; Squamous Epithelial Cell Urine 15-25 /hpf (0-5)
[2020-01-27 11:36] LABS: Alanine Aminotransferase 8 U/L (0-33); Albumin Level 3.8 g/dL (3.5-5.2); Alkaline Phosphatase 69 IU/L (35-105); Blood Urea Nitrogen 10 mg/dL (6-20); C Reactive Protein 159.1 mg/L (0.0-4.9); Calcium 8.6 mg/dL (8.5-10.5); Carbon Dioxide 24 mmol/L (22-29); Chloride 98 mmol/L (98-107); Globulin 2.7 g/dL (1.3-4.6); Glomerular Filtration Rate 89.7 mL/min (90-130); Glucose 112 mg/dL (65-115); Osmolality Calculated 276 mOsm/kg (285-295); Sodium 133 mmol/L (136-145); Total Bilirubin 0.2 mg/dL (0.15-1.2); Total Protein 6.5 g/dL (6.6-8.7)
[2020-01-27 11:50] LABS: Anion Gap 14.6 (5-19)
[2020-01-27 11:51] LABS: Potassium 3.6 mmol/L (3.5-5.1)
[2020-01-27 11:52] LABS: Aspartate Amino Transferase 14 U/L (0-32)
[2020-01-27 12:06] VITALS: BP 143/76; PULSE 75; RESP 15; O2SAT 95
[2020-01-29 17:58] LABS: Quest SARS-CoV-2 RNA NOT DETECTED (NOT DETECTED)
--- NOTE | 2020-01-30 09:05 | PC.NURSE ---
Pt called and notified of negative COVID result.
== END 2020-01-27 12:06 | disposition home or self-care (01) ==
PROVIDERS: Emergency Provider Emergency Medicine; PCP Physician Assistant Medical
DX: K52.9 Noninfective gastroenteritis and colitis, unspecified (principal)
CPT/HCPCS: 12345; 71045; 74177; 80053; 81001; 85025; 86140; 87040; 87635; 96374; 96375; 99283; J1885; J2405; Q9967

== ENCOUNTER 2020-02-06 06:56 | Outpatient (CLI) | payer BC, SELFPAY ==
--- NOTE | 2020-02-06 07:01 | NM_ITS ---
WS: [id number] NUCLEAR MEDICINE HIDA SCAN CLINICAL INFORMATION: ABDOMINAL PAIN TECHNIQUE: Following intravenous administration of mCi of technetium 99m mebrofenin, images of the ab domen were obtained over the course of 60 minutes. Next, gallbladder ejection fraction was determined by obtaining preprandial and one-hour postprandial images of the gallbladder following oral ingestio n of Ensure. COMPARISON: None. FINDINGS: Normal hepatic uptake at 5 minutes. Normal common bile duct. Normal small bowel activity. Gallbladder is visualized by 15 minutes. No evidence of acute cholecystitis or choledocholithiasis. Gallbladder ejection fraction 82% within normal limits. No evidence of chronic cholecystitis. NM/NM hepatobiliary w phar* [id number] IMPRESSION: 1. No evidence of acute or chronic cholecystitis. 2. Gallbladder ejection fraction 82% within normal limits.
== END 2020-02-06 06:57 | disposition home or self-care (01) ==
PROVIDERS: PCP Physician Assistant Medical; Visit Provider Surgery
DX: R10.9 Unspecified abdominal pain (principal)
CPT/HCPCS: 78227; A9537

== ENCOUNTER → 2021-01-29 09:34 | Outpatient (BNVA) | payer OTHER, SELFPAY | PROVIDERS: PCP Physician Assistant Medical; Visit Provider Surgery | DX: Z11.52 Encounter for screening for COVID-19 (principal); Z20.822 Contact with and (suspected) exposure to COVID-19 | CPT/HCPCS: 87635 ==

== ENCOUNTER 2021-02-05 06:06 | Day surgery (SDC) | payer OTHER, SELFPAY ==
[2021-02-04 14:19] VITALS: BMI 31.6
[2021-02-05] VITALS (16 sets, daily range): BP systolic 138–162; BP diastolic 81–106; PULSE 50–75; RESP 10–21; TEMP 36.1–36.3; O2SAT 90–100
--- NOTE | 2021-02-05 06:19 | W.PM.OPSUD ---
Surgery/Procedure H&P Update DATE OF PROCEDURE: February 05, 2021 DATE H&P PERFORMED: 01/22/21 H&P UPDATE INFORMATION: I have reviewed H&P completed within last 30 days, I have examined patient prior to procedure and No changes to prior documentation PREOP DIAGNOSIS: Bloating and diarrhea PRIMARY INDICATION FOR PROCEDURE: The same PLANNED PROCEDURE: Operation Date: 02/05/21 07:30 Proposed Procedures p Laparoscopic Cholecystectomy 58227 R10.11(Not Applicable) - Lucio Segal MD
--- NOTE | 2021-02-05 06:40 | ANES.PREANE2 ---
Pre-Anesthetic Assessment Pre-Anesthetic Assessment: Height/Weight: Height 1.68 m Weight 88.904 kg Temp Pulse Resp BP Pulse Ox 97.3 F L 66 18 144/81 95 02/05/21 06:38 02/05/21 06:38 02/05/21 06:38 02/05/21 06:38 02/05/21 06:38 Preop Diagnosis: Bloating and diarrhea Proposed Procedure: Operation Date: 02/05/21 07:30 Proposed Procedures p Laparoscopic Cholecystectomy 98101 R10.11(Not Applicable) - Lucio Segal MD Familial anesthetic complications: None Was Beta Lotus taken within 24 hours: N/A Was Clonidine taken within 24 hours: N/A Last intake: Intake Last Liquid Date 02/04/21 Last Liquid Time 21:00 Last Solid Date 02/04/21 Last Solid Time 19:30 Social: Social History: No alcohol and No tobacco Exam: Pre-Anes Outpt Exam: alert, oriented x 3, clear to auscultation bilaterally and regular rate & rhythm Airway: MP: 2 Dentition: Full GI: GI: GERD Musc/skel: Musc/skel: Fibromyalgia Anesthetic Plan: ASA status: 2 Anesthesia: General Risk of > 500 ml blood loss (7ml/kg in children): No PFSH Anesthesia PFSH: Medical History Fibromyalgia GERD (gastroesophageal reflux disease) Otitis media of both ears Yeast vaginitis Surgical History History of hysterectomy Family History Denies family history of Anesthesia complication Bleeding disorder Social History Smoking and tobacco status: former smoker Alcohol intake: current Alcohol intake frequency: holidays/special occasions only Current occupational 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
[2021-02-05] MEDS: acetaminophen 1,000 MG/100 ML PIGGYBACK 400 MG IV (06:53)
[2021-02-05] MEDS: heparin 5,000 unit/mL INJ 1 mL 3000 UNIT SUBCUT (06:53)
[2021-02-05] MEDS: sodium chloride 0.9% 1,000 ML 30 ML IV (07:15)
[2021-02-05] MEDS: ampicillin-sulbactam 3 GM in sodium chloride 0.9% (plus) 50 ML IV (07:30)
[2021-02-05] MEDS: lidocaine 2% INJ 20 mL INJECTION (08:01)
--- NOTE | 2021-02-05 08:52 | PM.OP ---
Operative Report Date of procedure: February 05, 2021 Pre-op Diagnosis: Bloating and diarrhea Post-op diagnosis: other (chronic cholecystitis) Procedure Done: Laparoscopic cholecystectomy Implants: Pieces of Surgicel at the gallbladder fossa Specimens removed/disposition: Gallbladder and contents Surgeon: Lucio Segal Software Installation Engineer: Surgical braeden Spencer and Kim Circulating nurse Erika Anesthesia: General (SYDNI Mendoza) Estimated blood loss (mL): 20 IV fluids (mL): 500 Condition: stable Disposition: same day Brief History: Symptomatic gallbladder disease Procedure: Patient was identified in the holding area and taken back to the operative suite, placed in supine position intubated by anesthesia . Time-out was done verifying the patient's name/date of /planned procedure and destination after the procedure, all were in agreement. SCDs confirmed to be functioning, preoperative antibiotics administered per protocol, and beta ana laura protocol was confirmed. Patient was appropriately secured to the table, footboard was applied to the OR table, before prep and drape anesthesia was asked to tilt the table back and forth to make sure that the patient is appropriately secured and she was. Prep and drape of the abdomen was done under the usual sterile technique, followed by that supraumbilical skin incision,skin incision was done by a 15 blade knife, and stay sutures were applied to the fascia and Araiza trocar technique was used to enter the abdominal without injuring any abdominal viscera, started by low flow gas insufflation followed by a high flow, started with a 10 mm laparoscope and under direct vision there was no evidence of any injuries, the scope then switched to a 30? ,10 millimeter scope and under direct visualization 5 millimeter trocar was inserted in the epigastric region followed by two 5 mm trocars were inserted in the right upper quadrant that was done after injection of local lidocaine 2% at all incision sites. Gallbladder showed chronic cholecystitis Patient was then positioned in the head up and tilted to the left Ratcheted forceps were introduced into the lateral most 5mm port and was applied unto the fundus of the gallbladder cephalad and using Bullet forceps the infundibulum of the gallbladder was retracted laterally. Using [place] forceps then L-hook cautery to dissect the peritoneum overlying the Calot's triangle whihc was then opened medially and laterally until the lung cystic duct and the cystic artery were skeletonized. Dissection was carried along the body of the gallbladder and after ensuring critical view of safety was identfied. Cystic duct and cystic artery where seen connected to the gallbladder. 3 Clips were applied on the cystic duct towards the common bile duct 1 towards the gallbladder then divided is in sharp scissors, 2 clips were then applied onto the cystic artery and 1 towards the gallbladder and divided by sharp scissors. Dissection was then carried along of the gallbladder from the gallbladder fossa using cautery as well as sharp dissection with heat energy. The gallbladder then was dissected out from the gallbladder fossa totally , cholecystectomy was then achieved and was placed in an Endo Catch bag and then retrieved from the Araiza trocar site under direct visualization using a 5 mm 30? scope through the epigastric trocar, specimen was then passed to the circulating nurse to go for permanent pathology,irrigation and hemostasis was done to the gallbladder fossa after hemostasis was secured, final survey laparoscopy was done that showed no injuries. Suction irrigation was obtained Completion hemostasis was achieved by placement of pieces of Surgicel at the gallbladder fossa. The supraumbilical fascial defect was then closed using interrupted #1 PDS sutures using a fascial closure device ;Raul Lang under direct visualization Gas was allowed to deflate,Trocars were then taken out under direct vision there was no evidence of bleeding Specimen was passed to the circulating nurse for permanent pathology. No drains were placed and the supraumbilical incision as well as all trocar sites were closed by 3-0 Vicryl followed by 4-0 Monocryl to approximate the skin edges of the supraumbilical incision, dressing was applied in the form of Dermabond and the patient patient got extubated and was taken to recovery area in a stable condition. Count of sponges, needles and instruments were completed at the end of the procedure I was present for the whole entire procedure.
[2021-02-05] MEDS: fentaNYL 50 mcg/mL INJ 2mL IVP ×2 (09:08→09:23)
[2021-02-05] MEDS: midazolam 1 mg/mL INJ 2 mL 2 MG IVP (09:18)
[2021-02-05] MEDS: HYDROcodone-acetaminophen 5-325 mg Tablet 1 TAB PO (10:32)
[2021-02-05] MEDS: ondansetron 2 mg/ML SDV 2 mL 4 MG IVP (10:55)
[2021-02-05] MEDS: morphine 4 mg/mL SDV 1 mL IVP ×2 (11:00→11:13)
== END 2021-02-05 11:30 | disposition home or self-care (01) ==
PROVIDERS: PCP Family Medicine; Visit Provider Surgery
PROC: 0FT44ZZ Resection of Gallbladder, Percutaneous Endoscopic Approach (ICD-10-PCS; CPT 47562; principal; 2021-02-05 07:30)
DX: R14.0 Abdominal distension (gaseous) (principal); K81.1 Chronic cholecystitis; R19.7 Diarrhea, unspecified; K21.9 Gastro-esophageal reflux disease without esophagitis; M79.7 Fibromyalgia; Z90.710 Acquired absence of both cervix and uterus; Z87.891 Personal history of nicotine dependence
CPT/HCPCS: 47562; 88304; 96365; 96372; J0295; J0330; J1100; J1644; J2250; J2270; J2405; J2704; J2710; J3010; J3490; J7030

== ENCOUNTER → 2021-06-01 08:28 | Outpatient (BNVA) | payer OTHER, SELFPAY | PROVIDERS: PCP Family Medicine; Visit Provider Surgery | DX: Z20.822 Contact with and (suspected) exposure to COVID-19 (principal) | CPT/HCPCS: 87635 ==

== ENCOUNTER 2021-06-04 07:39 | Day surgery (SDC) | payer OTHER, SELFPAY ==
[2021-06-03 09:47] VITALS: BMI 29.5
--- NOTE | 2021-06-04 07:45 | ANES.PREANE2 ---
Pre-Anesthetic Assessment Height/Weight: Height 1.68 m Weight 83.007 kg Preop Diagnosis: Bloating and diarrhea Operation Date: 06/04/21 09:45 Proposed Procedures p Colonoscopy 95246 Z12.11(Not Applicable) - Lucio Segal MD Familial anesthetic complications: PONV Was Beta Lotus taken within 24 hours: N/A Was Clonidine taken within 24 hours: N/A Last intake: > 8hrs Social No alcohol and No tobacco Exam alert, oriented x 3, clear to auscultation bilaterally and regular rate & rhythm Airway Mallampati: Class II Dentition: other (1 missing) Pulmonary None reported CV/HEM None reported None reported Hepatic None reported GI Gastroesophageal Reflux Disease [facility] Fibromyalgia Anesthetic Plan ASA status: 2 Anesthesia: MAC Medications/Allergies Home Medications Medication Instructions Recorded Confirmed Last Taken Type alprazolam 1 mg tablet (Xanax) 0.5 mg PO BID PRN tab 08/14/19 06/03/21 1 Day Ago History ~02/04/21 estradiol 2 mg tablet 2 mg PO DAILY 08/14/19 06/03/21 1 Day Ago History ~02/04/21 montelukast 10 mg tablet 10 mg PO DAILY 08/14/19 06/03/21 1 Day Ago History (Singulair) ~02/04/21 omeprazole 40 mg capsule,delayed 40 mg PO DAILY 08/14/19 06/03/21 1 Day Ago History release ~02/04/21 fluticasone propionate 50 2 spray INTRANASAL DAILY 01/27/20 06/03/21 Unknown History mcg/actuation nasal spray,suspension (Flonase Allergy Relief) meloxicam 15 mg tablet (Mobic) 15 mg PO DAILY 01/22/21 06/03/21 2 Days Ago History ~02/03/21 pregabalin 75 mg capsule (Lyrica) 75 mg PO BID cap 01/22/21 06/03/21 1 Day Ago History ~02/04/21 ondansetron HCl 4 mg tablet 4 mg PO Q6H #30 tab 02/06/21 06/03/21 Unknown Rx Allergies Allergy/AdvReac Type Severity Reaction Status Date / Time ciprofloxacin [From Cipro] Allergy itching Verified 03/19/21 08:32 topiramate [From Topamax] Allergy Jittery Verified 03/19/21 08:32 PFS Anesthesia Medical History Fibromyalgia GERD (gastroesophageal reflux disease) Otitis media of both ears Yeast vaginitis Surgical History History of hysterectomy Family History Denies family history of Anesthesia complication Bleeding disorder Social History Alcohol intake: current Alcohol intake frequency: holidays/special occasions only Current occupational 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
[2021-06-04 08:20] VITALS: BP 115/67; PULSE 81; RESP 18; TEMP 36.1; O2SAT 95
[2021-06-04] MEDS: sodium chloride 0.9% 1,000 ML 30 ML IV (08:24)
--- NOTE | 2021-06-04 11:05 | P.HP_ITS ---
Same Day Surgery H&P Indication for Procedure/HPI DATE OF PROCEDURE: June 04, 2021 CHIEF COMPLAINT/INDICATIONFOR SURGICAL PROCEDURE: Screening colonoscopy PREOP DIAGNOSIS: Screening colonoscopy PLANNED PROCEDURE: Operation Date: 06/04/21 09:45 Proposed Procedures p Colonoscopy 41601 Z12.11(Not Applicable) - Lucio Segal MD This is a pleasant 51-year-old female patient well-known to me comes today for screening colonoscopy. ROS All systems have been reviewed negative except as per the above or per problem list. Medications/Allergies* Home Medications Medication Instructions Recorded Confirmed Type alprazolam 1 mg tablet (Xanax) 0.5 mg PO BID PRN tab 08/14/19 06/03/21 History estradiol 2 mg tablet 2 mg PO DAILY 08/14/19 06/03/21 History montelukast 10 mg tablet 10 mg PO DAILY 08/14/19 06/03/21 History (Singulair) omeprazole 40 mg capsule,delayed 40 mg PO DAILY 08/14/19 06/03/21 History release fluticasone propionate 50 2 spray INTRANASAL DAILY 01/27/20 06/03/21 History mcg/actuation nasal spray,suspension (Flonase Allergy Relief) meloxicam 15 mg tablet (Mobic) 15 mg PO DAILY 01/22/21 06/03/21 History pregabalin 75 mg capsule (Lyrica) 75 mg PO BID cap 01/22/21 06/03/21 History Allergies/Adverse Reactions Allergy/AdvReac Type Severity Reaction Status Date / Time ciprofloxacin [From Cipro] Allergy itching Verified 06/04/21 11:06 topiramate [From Topamax] Allergy Jittery Verified 06/04/21 11:06 Current Medications: Generic Name Dose Route Start Last Admin Trade Name Freq PRN Reason Stop Dose Admin Sodium Chloride 1,000 mls @ 30 mls/hr 06/04/21 08:15 06/04/21 08:24 Sodium Chloride 0.9% IV 30 mls/hr .Q24H BRIDGET Administration Pertinent History/Comorbid Conditions* Medical History (Updated 03/20/21 @ 14:12 by Lucio Segal MD) Fibromyalgia GERD (gastroesophageal reflux disease) Otitis media of both ears Yeast vaginitis Surgical History (Updated 08/18/19 @ 22:26 by Jose Angel Owens DPM) History of hysterectomy Family History (Updated 11/01/19 @ 15:32 by Danica Toledo RN) Denies family history of Anesthesia complication Bleeding disorder Social History Alcohol intake: current Alcohol intake frequency: holidays/special occasions only Current occupational status: employed Current occupation: Home Health Pertinent Exam Findings alert, oriented x 3, regular rate & rhythm and procedure specific exam findings (Abdominal examination nontender nondistended soft) Recommendations Surgery/Procedure today (Colonoscopy with possible also possible polypectomy) Coding Level of Care Code Acute Graphic Pre Press Trades Worker for [employer]
[2021-06-04 11:34] VITALS: BP 107/51; PULSE 76; RESP 16; TEMP 36.1; O2SAT 97
[2021-06-04 11:48] VITALS: BP 118/69; PULSE 78; RESP 16; O2SAT 97
--- NOTE | 2021-06-04 19:17 | ANE.PACU2 ---
Inpatient post-anesthesia follow up: Airway intact: Yes Vital signs: Temperature 97 F Pulse Rate 78 Respiratory Rate 16 Blood Pressure 118/69 Pulse Oximetry 97 Oxygen Delivery Me thod Room Air Oxygen Flow Rate Fraction of Inspir ed Oxygen Hydration adequate: No Nausea and vomiting: Yes Pain level: 1 Mental status: Baseline
== END 2021-06-04 12:00 | disposition home or self-care (01) ==
PROVIDERS: PCP Family Medicine; Visit Provider Surgery
PROC: 0DJD8ZZ Inspection of Lower Intestinal Tract, Via Natural or Artificial Opening Endoscopic (ICD-10-PCS; CPT 45378; principal; 2021-06-04 09:45)
DX: Z12.11 Encounter for screening for malignant neoplasm of colon (principal); M79.7 Fibromyalgia; K21.9 Gastro-esophageal reflux disease without esophagitis
CPT/HCPCS: 45378; J2704; J7030

== ENCOUNTER 2021-12-04 11:09 | Outpatient (CLI) | payer OTHER, SELFPAY ==
--- NOTE | 2021-12-04 10:00 | FL_ITS ---
WS: [id number] Exam: FL barium swallow [id number] Date/Time of Exam: 12/04/2021 11:20 AM Reason For Exam: R13.10 - Dysphagia, unspecified Fluoroscopy time: 1min [id number] minutes # of spot films: Swallowing function at the level of the oropharynx was normal. No sign of esophageal mass or strictur e. Minimal posterior extrinsic compression of the cervical esophagus at the C5-6 level secondary to a nterior bone spurs at the C5-6 level. Esophageal motility was otherwise normal. No reflux or hiatal h ernia noted. The esophagus is not displaced. FL/FL barium swallow [id number] IMPRESSION: 1. Mild extrinsic compression along the posterior cervical esophagus at the C5- 6 level secondary to bone spurring. This causes only minimal luminal narrowing. 2. No intrinsic esophageal mass or stricture. No retained food bolus. 3. Esophageal motility was normal. No reflux.
== END 2021-12-04 11:10 | disposition home or self-care (01) ==
PROVIDERS: PCP Family Medicine; Visit Provider Surgery
DX: R13.10 Dysphagia, unspecified (principal)
CPT/HCPCS: 74220

== ENCOUNTER → 2023-12-08 08:38 | Outpatient (BNVA) | payer OTHER, SELFPAY | PROVIDERS: PCP Family Medicine; Visit Provider Podiatrist Foot & Ankle Surgery | DX: M79.671 Pain in right foot (principal); M79.672 Pain in left foot; M72.2 Plantar fascial fibromatosis | CPT/HCPCS: 73630 ==

== ENCOUNTER → 2023-12-29 10:42 | Outpatient (BNVA) | payer OTHER, SELFPAY | PROVIDERS: PCP Family Medicine; Visit Provider Nurse Practitioner Family | DX: R53.83 Other fatigue (principal); J34.89 Other specified disorders of nose and nasal sinuses; E78.5 Hyperlipidemia, unspecified; R35.0 Frequency of micturition; W57.XXXA Bitten or stung by nonvenomous insect and other nonvenomous arthropods, initial encounter | CPT/HCPCS: 80053; 80061; 81000; 85025; 86003; 86008 ==

== ENCOUNTER → 2024-01-09 10:43 | Outpatient (BNVA) | payer OTHER, SELFPAY | PROVIDERS: PCP Family Medicine; Visit Provider Nurse Practitioner Family | DX: R30.0 Dysuria (principal); N39.0 Urinary tract infection, site not specified | CPT/HCPCS: 81000; 87086 ==

== ENCOUNTER → 2024-06-04 11:37 | Outpatient (BNVA) | payer OTHER, SELFPAY | PROVIDERS: PCP Nurse Practitioner Family; Visit Provider Nurse Practitioner Family | DX: J02.9 Acute pharyngitis, unspecified (principal); J06.9 Acute upper respiratory infection, unspecified | CPT/HCPCS: 87400; 87880 ==

== ENCOUNTER 2024-07-04 06:39 | Outpatient (CLI) | payer OTHER, SELFPAY ==
--- NOTE | 2024-07-04 07:15 | US_ITS ---
WS: [id number] Complete ABDOMINAL ULTRASOUND HISTORY: R10.9 - Unspecified abdominal pain COMPARISON: None available. Liver: 17.0 cm in length. Normal size liver and echogenicity. No bile duct dilatation or mass. Portal Vein: Normal hepatopetal flow with monophasic waveform. Gallbladder: Prior cholecystectomy. CBD: 0.6 cm Pancreas: Normal size and echogenicity. Right kidney: 9.6 cm x 4.1 x 4.4 cm. Cortex:1.0 cm. Normal size and echogenicity. No hydronephrosis or mass. Left kidney: 10.1 cm x 3.8 cm x 4.1 cm. Cortex: 1.1 cm. Normal size and echogenicity. No hydronephrosis or mass. Spleen: 9.9 cm. Normal size and echogenicity. Aorta and IVC: Unremarkable abdominal aorta and IVC. US/US abdomen complete* [id number] Impression: 1. Prior cholecystectomy. 2. Common bile duct is measuring top normal size. No intrahepatic duct dilatat ion. 3. Negative kidneys. No hydronephrosis.
== END 2024-07-04 06:40 | disposition home or self-care (01) ==
PROVIDERS: PCP Nurse Practitioner Family; Visit Provider Nurse Practitioner Family
DX: R10.9 Unspecified abdominal pain (principal); Z90.49 Acquired absence of other specified parts of digestive tract
CPT/HCPCS: 76700

== ENCOUNTER 2024-07-09 06:50 | Outpatient (CLI) | payer OTHER, SELFPAY ==
--- NOTE | 2024-07-09 07:16 | XR_ITS ---
WS: [id number] Exam: XR lumbar spine 2-3V* [id number] Date/Time of Exam: 07/09/2024 7:22 AM Reason For Exam: M54.9 - Dorsalgia, unspecified No fracture or malalignment. Mild spondylosis. Moderate degenerative disc change at L3-4. Mild dextroscoliosis. Facet DJD at L4-5 and L5-S1. XR/XR lumbar spine 2-3V* [id number] IMPRESSION: 1. Degenerative changes and mild dextroscoliosis.
== END 2024-07-09 06:51 | disposition home or self-care (01) ==
PROVIDERS: PCP Nurse Practitioner Family; Visit Provider Nurse Practitioner Family
DX: M47.896 Other spondylosis, lumbar region (principal); M51.369 Other intervertebral disc degeneration, lumbar region without mention of lumbar back pain or lower extremity pain; M41.86 Other forms of scoliosis, lumbar region; M47.897 Other spondylosis, lumbosacral region
CPT/HCPCS: 72100

== ENCOUNTER 2024-07-24 06:46 | Outpatient (CLI) | payer OTHER, SELFPAY ==
--- NOTE | 2024-07-24 07:15 | MR_ITS ---
WS: [id number] MRI LUMBAR SPINE NONCONTRAST HISTORY: Low back pain for several months. Fall 2019. COMPARISON: None available. TECHNIQUE: Sagittal and axial multisequence imaging is submitted. T12 hemangioma. Normal lumbar alignment with no compression fractures or marrow edema. Disc spaces are well-preserved. Marrow edema within the adjacent endplates of L3 and L4. Conus terminates normally at L1. L1-L2: Normal. L2-L3: Mild ligamentum flavum and facet arthritis. Slight disc encroachment upon the traversing L3 nerve roots, RIGHT greater than LEFT. L3-L4: Mild annular disc bulging with ligamentum flavum and facet arthritis. Small amount of fluid in the facet joints. Very mild encroachment upon the ventral thecal sac. Annular disc bulging extending into the foramina resulting in mild foraminal stenosis. L4-L5: Diffuse annular disc bulging. RIGHT foraminal broad-based disc protrusion with annular fissure. Disc is contacting the RIGHT L4 and L5 nerve roots. Additional mild contact on the LEFT traversing L5 nerve root. Mild central, bilateral subarticular recess and foraminal stenosis. Fluid in the facet joints. L5-S1: Mild disc bulging. No significant stenosis. Paravertebral soft tissues are negative. Liver does appear slightly enlarged. Prior cholecystectomy. Common bile duct mildly prominent on the basis of cholecystectomy at the pancreatic head. MR/MR lumbar spine wo con* [id number] IMPRESSION: 1. No high-grade central or foraminal stenosis. 2. Focal degenerative disc disease at L3-4. 3. L2-3: Mild disc encroachment upon the traversing LEFT L3 nerve roots, RIGHT greater than LEFT. 4. L3-4: Disc bulging and facet arthritis resulting in mild foraminal stenosis . 5. L4-5: RIGHT foraminal broad-based disc protrusion with annular fissure. Dis c contacts the RIGHT L4 and L5 nerve roots. Mild contact. 6. L4-5: Mild central, bilateral subarticular recess and foraminal stenosis.
== END 2024-07-24 06:47 | disposition home or self-care (01) ==
PROVIDERS: PCP Nurse Practitioner Family; Visit Provider Nurse Practitioner Family
DX: M51.34 Other intervertebral disc degeneration, thoracic region (principal); M41.9 Scoliosis, unspecified; M51.369 Other intervertebral disc degeneration, lumbar region without mention of lumbar back pain or lower extremity pain; M48.061 Spinal stenosis, lumbar region without neurogenic claudication; M51.26 Other intervertebral disc displacement, lumbar region; D18.09 Hemangioma of other sites; M24.28 Disorder of ligament, vertebrae; M47.896 Other spondylosis, lumbar region; M51.379 Other intervertebral disc degeneration, lumbosacral region without mention of lumbar back pain or lower extremity pain; Z90.49 Acquired absence of other specified parts of digestive tract; R93.2 Abnormal findings on diagnostic imaging of liver and biliary tract
CPT/HCPCS: 72148

== ENCOUNTER 2024-08-02 06:30 | Outpatient (RCR) | payer OTHER, SELFPAY | END 2024-09-01 23:59 | disposition home or self-care (01) | LOC: WPT 06:30 | PROVIDERS: PCP Nurse Practitioner Family; Visit Provider Nurse Practitioner Family | DX: M51.369 Other intervertebral disc degeneration, lumbar region without mention of lumbar back pain or lower extremity pain (principal) | CPT/HCPCS: 97162 ==